=== PATIENT | female | born 1985 | race Caucasian/White ===

== ENCOUNTER 2024-12-14 19:19 | Emergency (ER) | payer BC ==
[~2024-12-14] VITALS: Ht 167.6 cm; Wt 65.8 kg
[2024-12-14] MEDS ORDERED: HYDROCODONE/APAP 5/325MG TABLET ONE ×2 (20:23→21:31)
[2024-12-14] MEDS: HYDROCODONE/APAP 5/325MG TABLET PO ONE ×2 (20:28→21:31)
[2024-12-14 21:04] LABS: PLATELET COUNT (AUTO) 369 K/uL (150-450); RED BLOOD CELL COUNT(AUTO) 4.35 MIL/uL (4.0-5.2); RED CELL DISTRIBUTION WIDTH 20.1 % (11.5-15.0); WHITE BLOOD COUNT (AUTO) 8.0 K/uL (4.3-11.0)
[2024-12-14 21:21] LABS: CALCIUM, SERUM 8.7 mg/dL (8.5-10.1); CREATININE 1.5 mg/dL (0.6-1.3); SODIUM SERUM 141.0 mmol/L (136-145); UREA NITROGEN, BLOOD 17.0 mg/dL (7-18)
[2024-12-14] MEDS ORDERED: IBUP-1490 PO (21:53)
[2024-12-14 22:05] VITALS: BP 98/70; TEMP 98; O2SAT 100
== END 2024-12-14 22:06 | disposition home or self-care (01) ==
LOC: ER 19:29
DX: S93.491A Sprain of other ligament of right ankle, initial encounter (principal); R00.2 Palpitations; W10.9XXA Fall (on) (from) unspecified stairs and steps, initial encounter; Y93.9 Activity, unspecified; Y92.89 Other specified places as the place of occurrence of the external cause; Y99.8 Other external cause status
CPT/HCPCS: 36415; 73610-TC; 80048-TC; 85025-TC